=== PATIENT | male | born 1960 | race Caucasian/White ===

== ENCOUNTER 2019-11-23 15:52 | Emergency (ER) | payer BC ==
--- NOTE | 2019-11-23 17:26 | EDM.PDOC ---
ED HPI GENERAL MEDICAL PROBLEM - General Chief Complaint: Respiratory Problem Stated Complaint: LOW OXYGEN COUGH AND SOB Time Seen by Provider: 11/23/19 16:01 Source of Information: Reports: Patient, RN Notes Reviewed History Limitations: Reports: No Limitations - History of Present Illness INITIAL COMMENTS - FREE TEXT/NARRATIVE: Patient is a 5-year-old male presenting to the emergency department with complaints of cough, low-grade fevers, nasal congestion, scratchy throat, and shortness of breath with exertion. He states his symptoms began of last week. Began as just a scratchy throat and a mild cough. It has been consistent since that time, however he states that his shortness of breath with exertion has been gradually worsening. He has a home pulse oximeter at home and states that his oxygen saturations have been maintaining in the low 90s. His normal oxygen saturation is 94 to 96% on room air. He states that approximate 1 year ago in April he had an episode of bacterial pneumonia that required hospitalization and he states this feels a little bit like that did. He is concerned that he could be developing a pneumonia again. He denies any chronic cardiac or respiratory pathology. He did get tested for COVID-19 2 days ago, however he has not received the results of that test thus far. - Related Data Allergies Allergy/AdvReac Type Severity Reaction Status Date / Time No Known Allergies Allergy Verified 11/23/19 15:59 Home Meds: Home Meds Losartan [Cozaar] 50 mg PO DAILY 11/23/19 [History] dexAMETHasone [Dexamethasone] 6 mg PO BID 4 Days #8 tab 11/23/19 [Rx] Past Medical History Cardiovascular History: Reports: Hypertension Respiratory History: Reports: Sleep Apnea Social & Family History - Tobacco Use Tobacco Use Status *Q: Never Tobacco User Second Hand Smoke Exposure: No - Caffeine Use Caffeine Use: Reports: Coffee - Recreational Drug Use Recreational Drug Use: No ED ROS GENERAL - Review of Systems Review Of Systems: See Below Constitutional: Reports: Fever, Fatigue. Denies: Chills HEENT: Reports: No Symptoms Respiratory: Reports: Shortness of Breath, Cough Cardiovascular: Reports: Dyspnea on Exertion. Denies: Chest Pain, Lightheadedness, Syncope Endocrine: Reports: No Symptoms GI/Abdominal: Reports: Decreased Appetite. Denies: Abdominal Pain, Diarrhea, Nausea, Vomiting : Reports: No Symptoms Musculoskeletal: Reports: Other (Generalized body aches) Skin: Reports: No Symptoms Neurological: Reports: No Symptoms Psychiatric: Reports: No Symptoms Hematologic/Lymphatic: Reports: No Symptoms Immunologic: Reports: No Symptoms ED EXAM, GENERAL - Physical Exam Exam: See Below General Appearance: Alert, WD/WN, No Apparent Distress Respiratory/Chest: No Respiratory Distress, Lungs Clear, Normal Breath Sounds, No Accessory Muscle Use, Chest Non-Tender Cardiovascular: Normal Peripheral Pulses, Regular Rate, Rhythm, No Edema, No Gallop, No JVD, No Murmur, No Rub GI/Abdominal: Normal Bowel Sounds, Soft, Non-Tender, No Organomegaly, No Distention, No Abnormal Bruit, No Mass Neurological: Alert, Oriented, CN II-XII Intact, Normal Cognition, Normal Gait, Normal Reflexes, No Motor/Sensory Deficits Psychiatric: Normal Affect, Normal Mood Skin Exam: Warm, Dry, Intact, Normal Color, No Rash #1 Interpretation EKG Date: 11/23/19 Time: 16:37 Rhythm: NSR Rate (Beats/Min): 86 [place]: Normal P-Wave: Present QRS: Normal ST-T: Normal QT: Normal EKG Interpretation Comments: PVC mild ST elevation V2 abnormal EKG EKG interpreted by Dr. Jairo MD. Course - Vital Signs Last Recorded V/S: Last Vital Signs Temp 99.1 F 11/23/19 16:00 Pulse 89 11/23/19 16:00 Resp 22 H 11/23/19 16:00 BP 115/68 11/23/19 16:00 Pulse Ox 92 L 11/23/19 16:00 - Orders/Labs/Meds Orders: Active Orders 24 hr Category Date Time Status Chest 1V Frontal [CR] Stat Exams 11/23/19 16:08 Taken Labs: Laboratory Tests 11/23/19 11/23/19 11/23/19 Range/Units 16:27 16:27 16:27 WBC 4.67 (4.23-9.07) K/mm3 RBC 4.46 L (4.63-6.08) M/mm3 Hgb 13.2 L (13.7-17.5) gm/dl Hct 41.1 (40.1-51.0) % MCV 92.2 (79.0-92.2) fl MCH 29.6 (25.7-32.2) pg MCHC 32.1 L (32.2-35.5) g/dl RDW Std Deviation 43.9 (35.1-43.9) fL Plt Count 202 (163-337) K/mm3 MPV 9.6 (9.4-12.3) fl Neut % (Auto) 70.1 H (34.0-67.9) % Lymph % (Auto) 19.9 L (21.8-53.1) % Posey % (Auto) 8.8 (5.3-12.2) % Eos % (Auto) 0.6 L (0.8-7.0) Baso % (Auto) 0.4 (0.1-1.2) % Neut # (Auto) 3.27 (1.78-5.38) K/mm3 Lymph # (Auto) 0.93 L (1.32-3.57) K/mm3 Posey # (Auto) 0.41 (0.30-0.82) K/mm3 Eos # (Auto) 0.03 L (0.04-0.54) K/mm3 Baso # (Auto) 0.02 (0.01-0.08) K/mm3 D-Dimer, Quantitative 0.80 H (0.19-0.50) mg/L Sodium 135 L (136-145) mEq/L Potassium 4.2 (3.5-5.1) mEq/L Chloride 97 L (98-107) mEq/L Carbon Dioxide 28 (21-32) mEq/L Anion Gap 14.2 (5-15) BUN 12 (7-18) mg/dL Creatinine 1.2 (0.7-1.3) mg/dL Est Cr Clr Drug Dosing 71.85 mL/min Estimated GFR (MDRD) > 60 (>60) mL/min BUN/Creatinine Ratio 10.0 L (14-18) Glucose 136 H (74-106) mg/dL Calcium 8.4 L (8.5-10.1) mg/dL Ferritin (26-388) ng/ml Total Bilirubin 0.4 (0.2-1.0) mg/dL AST 34 (15-37) U/L ALT 45 (16-63) U/L Alkaline Phosphatase 95 (46-116) U/L Lactate Dehydrogenase 233 H (85-227) U/L Troponin I < 0.017 (0.00-0.056) ng/mL C-Reactive Protein 4.1 H* (<1.0) mg/dL NT-Pro-B Natriuret Pep (0-125) pg/mL Total Protein 7.7 (6.4-8.2) g/dl Albumin 3.4 (3.4-5.0) g/dl Globulin 4.3 gm/dL Albumin/Globulin Ratio 0.8 L (1-2) SARS-CoV-2 RNA (CARMELITA) (NEGATIVE) 11/23/19 11/23/19 11/23/19 Range/Units 16:27 16:27 16:55 WBC (4.23-9.07) K/mm3 RBC (4.63-6.08) M/mm3 Hgb (13.7-17.5) gm/dl Hct (40.1-51.0) % MCV (79.0-92.2) fl MCH (25.7-32.2) pg MCHC (32.2-35.5) g/dl RDW Std Deviation (35.1-43.9) fL Plt Count (163-337) K/mm3 MPV (9.4-12.3) fl Neut % (Auto) (34.0-67.9) % Lymph % (Auto) (21.8-53.1) % Posey % (Auto) (5.3-12.2) % Eos % (Auto) (0.8-7.0) Baso % (Auto) (0.1-1.2) % Neut # (Auto) (1.78-5.38) K/mm3 Lymph # (Auto) (1.32-3.57) K/mm3 Posey # (Auto) (0.30-0.82) K/mm3 Eos # (Auto) (0.04-0.54) K/mm3 Baso # (Auto) (0.01-0.08) K/mm3 D-Dimer, Quantitative (0.19-0.50) mg/L Sodium (136-145) mEq/L Potassium (3.5-5.1) mEq/L Chloride (98-107) mEq/L Carbon Dioxide (21-32) mEq/L Anion Gap (5-15) BUN (7-18) mg/dL Creatinine (0.7-1.3) mg/dL Est Cr Clr Drug Dosing mL/min Estimated GFR (MDRD) (>60) mL/min BUN/Creatinine Ratio (14-18) Glucose (74-106) mg/dL Calcium (8.5-10.1) mg/dL Ferritin 2158 H (26-388) ng/ml Total Bilirubin (0.2-1.0) mg/dL AST (15-37) U/L ALT (16-63) U/L Alkaline Phosphatase (46-116) U/L Lactate Dehydrogenase (85-227) U/L Troponin I (0.00-0.056) ng/mL C-Reactive Protein (<1.0) mg/dL NT-Pro-B Natriuret Pep 14 (0-125) pg/mL Total Protein (6.4-8.2) g/dl Albumin (3.4-5.0) g/dl Globulin gm/dL Albumin/Globulin Ratio (1-2) SARS-CoV-2 RNA (CARMELITA) Positive H (NEGATIVE) Meds: Medications Discontinued Medications Generic Name Dose Route Start Last Admin Trade Name Freq PRN Reason Stop Dose Admin Dexamethasone 6 mg 11/23/19 18:08 11/23/19 18:34 Dexamethasone PO 11/23/19 18:09 6 mg ONETIME ONE Administration - Re-Assessments/Exams Free Text/Narrative Re-Assessment/Exam: Patient is a 5-year-old male presenting to the emergency department with complaints of cough, fatigue, scratchy throat, nasal congestion, and shortness of breath on exertion. He is on day 7 of his illness. He has had no known sick exposures, however states he travels quite a bit. He has a history of community-acquired pneumonia 1 year ago. Denies any significant cardiac history. Patient is a large gentleman with a BMI of 58. Oxygen saturations at home have been in the low 90s, however he states normal oxygen saturation for him is 194 to 96%. His presentation is highly suspicious for Covid. Will complete a Covid work-up including CBC, CMP, CRP, D-dimer, troponin, LDH, ferritin, chest x-ray, EKG, and a 1 hour Covid test. 11/23/19 18:05 Hematology was significant for a hemoglobin minimally low at 13.2, D-dimer 0.80, sodium 135, chloride 97, ferritin 2158, LDH 233, CRP 4.1. Chest x-ray noted increased pulmonary parenchymal markings demonstrated bilaterally with prominence in the perihilar regions. Findings may indicate the presence of pneumonitis. EKG showed no acute ischemia. Patient's 1 hour coronavirus test was positive. Discussed these findings with patient. Recommend that he continue to monitor his oxygen saturations at home. If he is maintaining an oxygen saturation of less than 90%, he should return to ER for reevaluation. We will start him on a course of dexamethasone 6 mg twice daily for 4 days with the first dose given this evening in the ER. Patient verbalized understanding of return precautions. Discharge instructions as documented. Departure - Departure Time of Disposition: 18:08 Disposition: Home, Self-Care 01 Condition: Good Clinical Impression: COVID-19 - Discharge Information *PRESCRIPTION DRUG MONITORING PROGRAM REVIEWED*: No *COPY OF PRESCRIPTION DRUG MONITORING REPORT IN PATIENT ZBIGNIEW: No Prescriptions: dexAMETHasone [Dexamethasone] 6 mg PO BID 4 Days #8 tab Instructions: COVID-19 Frequently Asked Questions, COVID-19 Referrals: Tom Brown MD [Primary Care Provider] - Forms: ED Department Discharge Additional Instructions: You were seen in the emergency department today for a 1 week history of cough, low-grade fever, scratchy throat, nasal congestion, and shortness of breath with exertion. Work-up included chest x-ray, blood work, an EKG of your heart, and a coronavirus test. Results of your test were consistent with a diagnosis of COVID-19. There is some increased markings within your lungs which could represent a very mild viral pneumonia. While in the ER, your oxygen saturations did maintain above 90%. You were started on dexamethasone which is a steroid. This should be taken twice daily for 4 days. Recommend that you continue to monitor your oxygen saturations at home. If you are finding that you are maintaining an oxygen saturation of less than 90%, he should return to the emergency department for reevaluation. Recommend isolation of yourself and quarantine of any of your close contacts. The [facility] should be in contact with you tomorrow or the next day. If you feel that your symptoms are worsening in any way, please not hesitate to return to the emergency department for reevaluation. Sepsis Event Note (ED) - Evaluation Sepsis Screening Result: No Definite Risk - Focused Exam Vital Signs: Vital Signs Temp Pulse Resp BP Pulse Ox 11/23/19 16:00 99.1 F 89 22 H 115/68 92 L - My Orders Last 24 Hours: My Active Orders 11/23/19 16:08 Chest 1V Frontal [CR] Stat - Assessment/Plan Last 24 Hours: My Active Orders 11/23/19 16:08 Chest 1V Frontal [CR] Stat
[2019-11-23] MEDS ORDERED: Dexamethasone 4 MG Tab PO ONE (18:08)
== END 2019-11-23 18:36 | disposition home or self-care (01) ==
LOC: JD.ED 15:52
DX: U07.1 COVID-19 (principal); I10 Essential (primary) hypertension; Z79.899 Other long term (current) drug therapy
CPT/HCPCS: 36415; 71045; 80053; 82728; 83615; 83880; 84484; 85025; 85379; 86140; 87635; 93005; 99285; J8540; 93010; 99283; U0002

== ENCOUNTER 2021-02-05 11:57 | Emergency (ER) | payer BC ==
[2021-02-05] MEDS ORDERED: Bupivacaine 0.5%/EPINEPHrine 1:200,000 30 ML SDV INJECT ONE (12:38)
--- NOTE | 2021-02-05 12:44 | EDM.PDOC ---
ED HPI GENERAL MEDICAL PROBLEM - General Chief Complaint: General Stated Complaint: RECTAL BLEEDING Time Seen by Provider: 02/05/21 12:12 Source of Information: Reports: Patient, RN Notes Reviewed History Limitations: Reports: No Limitations - History of Present Illness INITIAL COMMENTS - FREE TEXT/NARRATIVE: Patient is a 60-year-old male who presents to the ER for evaluation of his bleeding hemorrhoids. Patient states that he had recent gastric bypass surgery, also has been having some digestive issues. States he was constipated a while back, and ended up pushing little harder than intended, and cause issues with one of his hemorrhoids. States he has been using creams and pads/wipes in order to resolve this again; but he woke up this morning at around 10:45 AM and states that there was quite a bit of blood in the bed. This was bright red blood. States that he has not been able to get it to stop since it started. Having a slight a bit of discomfort with the hemorrhoid. Not dizzy or lightheaded, no fevers or chills, cough or shortness of breath. Patient states he is having no other issues today, and came due to the rectal bleeding. - Related Data Allergies Allergy/AdvReac Type Severity Reaction Status Date / Time No Known Allergies Allergy Verified 02/05/21 12:15 Home Meds: Home Meds Pantoprazole Sodium [Protonix] 02/05/21 [History] Past Medical History HEENT History: Reports: Impaired Vision Other HEENT History: deviated septum surgery, uvula removed Cardiovascular History: Reports: Hypertension Respiratory History: Reports: Sleep Apnea Gastrointestinal History: Reports: Hemorrhoids - Past Surgical History GI Surgical History: Reports: Bariatric Procedure Other GI Surgeries/Procedures: gastric sleeve Social & Family History - Tobacco Use Tobacco Use Status *Q: Never Tobacco User - Caffeine Use Caffeine Use: Reports: Coffee - Recreational Drug Use Recreational Drug Use: No ED ROS GENERAL - Review of Systems Review Of Systems: Comprehensive ROS is negative, except as noted in HPI. ED EXAM, GENERAL - Physical Exam Exam: See Below Exam Limited By: No Limitations General Appearance: Alert, WD/WN, No Apparent Distress Respiratory/Chest: No Respiratory Distress, Lungs Clear, Normal Breath Sounds, No Accessory Muscle Use, Chest Non-Tender Cardiovascular: Normal Peripheral Pulses, Regular Rate, Rhythm, No Edema GI/Abdominal: Normal Bowel Sounds, Soft, Non-Tender, No Distention, No Mass Extremities: Normal Inspection, Normal Capillary Refill Neurological: Alert, Oriented, Normal Cognition, No Motor/Sensory Deficits Psychiatric: Normal Affect, Normal Mood Skin Exam: Warm, Dry, Intact, Normal Color, No Rash ED I&D PROCEDURES - I&D Site: rectal Skin prep: Providone-Iodine (Betadine) Local anesthesia - Lidocaine (Xylocaine): 1% with EPI Local Anesthesia - Bupivicaine (Marcaine): 0.5% Plain Local Anesthetic Volume: 5cc Area Incised With: Needle (thrombose hemorrhoid was injected with 5mL bupivicaine/lidocaine mixture; thrombosis removed, not bleeding too much after management) Drainage: Bloody, Small Amount Sterile Dressinx4(s) Complications: No Course - Vital Signs Last Recorded V/S: Last Vital Signs Temp 97.7 F 02/05/21 12:12 Pulse 65 02/05/21 12:12 Resp 16 02/05/21 12:12 BP 149/77 H 02/05/21 12:12 Pulse Ox 99 02/05/21 12:12 - Orders/Labs/Meds Meds: Medications Discontinued Medications Generic Name Dose Route Start Last Admin Trade Name Juveq PRN Reason Stop Dose Admin Bupivacaine HCl 10 ml 02/05/21 13:01 Bupivacaine 0.5% 10 Ml Sdv INJECT 02/05/21 13:02 ONETIME ONE Bupivacaine HCl/Epinephrine Bitart 30 ml 02/05/21 12:38 Bupivacaine 0.5%/Epinephrine 1:200,000 30 Ml Sdv INJECT 02/05/21 12:39 ONETIME ONE Lidocaine/Epinephrine 10 ml 02/05/21 13:01 Lidocaine 1% With Epinephrine 1:100,000 10 Ml Mdv INJECT 02/05/21 13:02 ONETIME ONE Lidocaine/Epinephrine Confirm 02/05/21 13:22 Lidocaine 1% With Epinephrine 1:100,000 20 Ml Mdv Administered 02/05/21 13:23 Dose 20 ml .ROUTE .ST-MED ONE - Re-Assessments/Exams Free Text/Narrative Re-Assessment/Exam: 02/05/21 12:43 Patient presents to the ER for evaluation of his rectal bleeding. Case was discussed with Dr. Cedillo and he does recommend the possibility of using bupivacaine with epi for therapeutic management at this time. And follow-up with surgery after this. This bupivacaine and epi has been ordered. 02/05/21 14:47 I was able to have Dr. Cedillo come into the patient's room, and he was able to inject the area of the hemorrhoid on the patient's rectal area the thrombosis was removed pretty much entirely. No major amount of active bleeding was noted after this was performed. General instructions were given to the patient for management and will have him follow-up with Dr. Daniel for ongoing management. Departure - Departure Time of Disposition: 14:48 Disposition: Home, Self-Care 01 Condition: Good Clinical Impression: Thrombosed external hemorrhoid - Discharge Information *PRESCRIPTION DRUG MONITORING PROGRAM REVIEWED*: No *COPY OF PRESCRIPTION DRUG MONITORING REPORT IN PATIENT ZBIGNIEW: No Instructions: Hemorrhoids, [id number] Referrals: Tom Brown MD [Primary Care Provider] - Hussain Daniel MD [Physician] - Forms: ED Department Discharge Additional Instructions: You were evaluated in the ER today for your rectal bleeding. You were identified to have a thrombosed hemorrhoid, and this was injected with some lidocaine/bupivacaine mixture and the thrombosis was removed pretty much entirely. The area itself might weep a little bit for a while, but most of the bleeding should stop. Recommend after every bowel movement you have, that you try to wash the area very well with sitz bath type bath or a shower. You may apply a little bacitracin to the area as well for ongoing management. You should follow-up with general surgery for your general health, and hemorrhoid management. Dr. Daniel is a surgeon over at [facility] and should be able to provide you with the services, please call [phone] and obtain appoint with him in the next week or so for ongoing management. Do not hesitate to return to the ER at any time if symptoms change or worsen. Sepsis Event Note (ED) - Evaluation Sepsis Screening Result: No Definite Risk - Focused Exam Vital Signs: Vital Signs Temp Pulse Resp BP Pulse Ox 02/05/21 12:12 97.7 F 65 16 149/77 H 99
[2021-02-05] MEDS ORDERED: Lidocaine 1% with EPINEPHrine 1:100,000 10 ML MDV INJECT ONE (13:01)
[2021-02-05] MEDS ORDERED: Bupivacaine 0.5% 10 ML SDV INJECT ONE (13:01)
[2021-02-05] MEDS ORDERED: Lidocaine 1% with EPINEPHrine 1:100,000 20 ML MDV ONE (13:22)
== END 2021-02-05 15:00 | disposition home or self-care (01) ==
LOC: JD.ED 11:57
DX: K64.5 Perianal venous thrombosis (principal); I10 Essential (primary) hypertension; Z79.899 Other long term (current) drug therapy
CPT/HCPCS: 46320; 99282; J3490